=== PATIENT | male | born 1990 | race Caucasian/White ===

== ENCOUNTER 2017-04-26 08:15 | Emergency (ER) | payer MEDICARE, MEDICAID ==
[~2017-04-26] VITALS: Ht 185.4 cm; Wt 75.8 kg
[2017-04-26 09:34] VITALS: BP 116/67
== END 2017-04-26 09:35 | disposition home or self-care (01) ==
LOC: M.ERS 08:15
DX: M54.2 Cervicalgia (principal); F20.9 Schizophrenia, unspecified; I10 Essential (primary) hypertension; F17.210 Nicotine dependence, cigarettes, uncomplicated

== ENCOUNTER 2017-05-24 20:59 | Emergency (ER) | payer MEDICARE, MEDICAID ==
[~2017-05-24] VITALS: Ht 170.2 cm; Wt 68.0 kg
[2017-05-24] MEDS ORDERED: REVIA 50 MG TAB50 M1 (21:06)
[2017-05-24] MEDS ORDERED: OXTELLAR XR600 MG PO (21:07)
[2017-05-24] MEDS ORDERED: PROPRANOLOL 1010 MG PO (21:07)
[2017-05-24] MEDS ORDERED: VISTARIL 25 MG25 M1 PO (21:07)
[2017-05-24] MEDS ORDERED: TRAZODONE 150150 M1 PO (21:08)
[2017-05-24] MEDS ORDERED: HALOPERIDOL 2 MG2 M1 PO (21:08)
[2017-05-24 21:38] LABS: ABSOLUTE BASOPHILS 0.2 thou/uL (0.0-0.2); ABSOLUTE EOSINOPHILS 0.4 thou/uL (0.0-0.7); ABSOLUTE LYMPHOCYTES 3.9 thou/uL (0.8-5.3); ABSOLUTE MONOCYTES 0.9 thou/uL (0.0-1.2); ABSOLUTE NEUTROPHILS 7.4 thou/uL (1.6-8.1); BASOPHILS 1.2 %; EOSINOPHILS 2.8 %; HEMATOCRIT 48.4 % (42.0-52.0); HEMOGLOBIN 16.8 gm/dL (14.0-18.0); LYMPHOCYTES 30.6 %; MCH 32.5 pg (26.0-34.0); MCHC 34.7 g/dL (28.0-37.0); MCV 93.6 fL (80.0-100.0); MONOCYTES 7.3 %; MPV 7.4 fl. (7.2-11.1); NUCLEATED RBCS 0 /100WBC; PLATELET COUNT* 214 thou/uL (150-400); POLYS 58.1 %; RBC 5.18 mil/uL (4.50-6.00); RDW-CV 14.4 % (10.5-14.5); WBC 12.8 thou/uL (4.0-11.0)
[2017-05-24 21:46] LABS: AMP/METHAMP Negative (Negative); BARBITURATES Negative (Negative); BENZODIAZEPINES Negative (Negative); COCAINE Negative (Negative); METHADONE Negative (Negative); OPIATES Negative (Negative); PCP Negative (Negative); THC Negative (Negative)
[2017-05-24 22:02] LABS: CALCIUM 8.7 mg/dL (8.5-10.1); CREATININE 1.1 mg/dL (0.6-1.3); POTASSIUM 3.9 mmol/L (3.5-5.1)
[2017-05-24 22:03] LABS: ALCOHOL 295 mg/dL (<10); SALICYLATE 3.2 mg/dL (2.8-20.0)
[2017-05-24 22:07] LABS: ALBUMIN 4.4 g/dL (3.4-5.0); TOTAL BILIRUBIN 0.2 mg/dL (<0.1-1.0); TOTAL PROTEIN 8.5 g/dL (6.4-8.2)
[2017-05-24 22:16] LABS: ACETAMINOPHEN < 2 ug/mL (10-30)
[2017-05-25 02:56] VITALS: BP 96/56
== END 2017-05-25 03:00 | disposition home or self-care (01) ==
LOC: M.ERS 20:59
PROVIDERS: Emergency Medicine
DX: R45.851 Suicidal ideations (principal); F25.9 Schizoaffective disorder, unspecified; I10 Essential (primary) hypertension; F17.210 Nicotine dependence, cigarettes, uncomplicated; F10.120 Alcohol abuse with intoxication, uncomplicated

== ENCOUNTER 2017-11-01 03:22 | Emergency (ER) | payer MEDICARE, MEDICAID ==
[~2017-11-01] VITALS: Ht 182.9 cm; Wt 76.7 kg
[~2017-11-01 03:22] MED LIST: HALOPERIDOL 2 MG2 M1 PO; OXTELLAR XR600 MG PO; PROPRANOLOL 1010 MG PO; REVIA 50 MG TAB50 M1; TRAZODONE 150150 M1 PO; VISTARIL 25 MG25 M1 PO
[2017-11-01 03:43] LABS: URINE BILIRUBIN NEGATIVE (Negative); URINE BLOOD NEGATIVE (Negative); URINE CLARITY CLEAR; URINE COLOR STRAW; URINE GLUCOSE-RANDOM NEGATIVE (Negative); URINE KETONES NEGATIVE (Negative); URINE LEUKOCYTES-REFLEX NEGATIVE (Negative); URINE NITRITE-REFLEX NEGATIVE (Negative); URINE PROTEIN NEGATIVE (Negative); URINE SPECIFIC GRAVITY <= 1.005 (1.005-1.030); URINE UROBILINOGEN 0.2 E.U./dl (0.2-1.0)
[2017-11-01 03:51] LABS: AMP/METHAMP Negative (Negative); BARBITURATES Negative (Negative); BENZODIAZEPINES Negative (Negative); COCAINE Negative (Negative); METHADONE Negative (Negative); OPIATES Negative (Negative); PCP Negative (Negative); THC Negative (Negative)
[2017-11-01] MEDS ORDERED: TRILEPTAL 300300 MG PO (03:56)
[2017-11-01] MEDS ORDERED: TRAZODONE 150150 M1 PO (03:56)
[2017-11-01] MEDS ORDERED: MEDROLDOSEPACK PO (03:56)
[2017-11-01] MEDS ORDERED: PROPRANOLOL 1010 MG PO (03:56)
[2017-11-01] MEDS ORDERED: HYDROXYZINE HCL25 M2 PO (03:56)
[2017-11-01 04:10] VITALS: BP 131/89
== END 2017-11-01 04:10 | disposition home or self-care (01) ==
LOC: M.ERS 03:22
PROVIDERS: Emergency Medicine
DX: G62.9 Polyneuropathy, unspecified (principal); M53.3 Sacrococcygeal disorders, not elsewhere classified; I10 Essential (primary) hypertension; F25.9 Schizoaffective disorder, unspecified; F17.210 Nicotine dependence, cigarettes, uncomplicated

== ENCOUNTER 2021-03-14 18:40 | Emergency (ER) | payer MEDICARE, MEDICAID ==
[~2021-03-14] VITALS: Ht 175.3 cm; Wt 70.3 kg
[~2021-03-14 18:40] MED LIST changes: +HYDROXYZINE HCL25 M2 PO; +MEDROLDOSEPACK PO; +TRILEPTAL 300300 MG PO
[2021-03-14 19:24] LABS: URINE BILIRUBIN NEGATIVE (Negative); URINE BLOOD NEGATIVE (Negative); URINE CLARITY CLEAR; URINE COLOR YELLOW; URINE GLUCOSE-RANDOM NEGATIVE (Negative); URINE KETONES NEGATIVE (Negative); URINE LEUKOCYTES-REFLEX NEGATIVE (Negative); URINE NITRITE-REFLEX NEGATIVE (Negative); URINE PROTEIN 2+ (Negative); URINE SPECIFIC GRAVITY >= 1.030 (1.005-1.030); URINE UROBILINOGEN 0.2 E.U./dl (0.2-1.0)
[2021-03-14 19:27] LABS: AMP/METHAMP POSITIVE (Negative); BARBITURATES Negative (Negative); BENZODIAZEPINES Negative (Negative); COCAINE Negative (Negative); METHADONE Negative (Negative); OPIATES Negative (Negative); PCP Negative (Negative); THC POSITIVE (Negative)
[2021-03-14 19:29] LABS: NUCLEATED RBCS 0 /100WBC; RBC 4.33 mil/uL (4.50-6.00)
[2021-03-14 19:30] LABS: ABSOLUTE BASOPHILS 0.1 thou/uL (0.0-0.2); ABSOLUTE EOSINOPHILS 0.1 thou/uL (0.0-0.7); ABSOLUTE LYMPHOCYTES 1.8 thou/uL (0.8-5.3); ABSOLUTE MONOCYTES 0.8 thou/uL (0.0-1.2); ABSOLUTE NEUTROPHILS 8.8 thou/uL (1.6-8.1); BASOPHILS 0.7 %; EOSINOPHILS 0.8 %; HEMATOCRIT 40.9 % (42.0-52.0); LYMPHOCYTES 15.4 %; MCH 32.4 pg (26.0-34.0); MCHC 34.3 g/dL (28.0-37.0); MCV 94.4 fL (80.0-100.0); MONOCYTES 7.3 %; MPV 7.2 fl. (7.2-11.1); PLATELET COUNT* 239 thou/uL (150-400); POLYS 75.8 %; RDW-CV 12.8 % (10.5-14.5); WBC 11.6 thou/uL (4.0-11.0)
[2021-03-14 19:39] LABS: BACTERIA-REFLEX None Seen /HPF (None Seen); CASTS None Seen /LPF (None Seen); CRYSTALS None Seen /LPF (None Seen); MUCUS 0-3 Light strn/LPF (None Seen); SQUAMOUS 4-10 Moderate /LPF (0-3); URINE RBC None Seen /HPF (0-2); URINE WBC-REFLEX 0-5 Rare /HPF (0-5)
[2021-03-14 19:43] LABS: CREATININE 1.1 mg/dL (0.6-1.3); POTASSIUM 3.6 mmol/L (3.5-5.1)
[2021-03-14 19:47] LABS: ALBUMIN 4.1 g/dL (3.4-5.0); ALCOHOL < 10 mg/dL (<10); SALICYLATE 2.9 mg/dL (2.8-20.0); TOTAL BILIRUBIN 0.2 mg/dL (<0.1-1.0)
[2021-03-14 19:51] LABS: ACETAMINOPHEN < 2 ug/mL (10-30)
[2021-03-15 01:32] VITALS: BP 130/70
== END 2021-03-15 01:35 | disposition home or self-care (01) ==
LOC: M.ERS 18:40
PROVIDERS: Emergency Medicine Emergency Medical Services
DX: F10.129 Alcohol abuse with intoxication, unspecified (principal); Z20.822 Contact with and (suspected) exposure to COVID-19; Y90.9 Presence of alcohol in blood, level not specified; F20.9 Schizophrenia, unspecified; I10 Essential (primary) hypertension